=== PATIENT | female | born 1965 | race Caucasian/White ===

== ENCOUNTER 2017-10-06 08:28 | Emergency (ER) | payer OTHER, MEDICAID ==
[2017-10-06 09:11] LABS: ADD MAN DIFF? NO
[2017-10-06 09:14] LABS: BASOPHILS % 0.4 % (0.0-2.0); EOSINOPHILS # 0.1 10^3/ul (0.0-0.5); EOSINOPHILS % 1.8 % (0.0-7.0); HEMATOCRIT 39.5 % (37.0-47.0); HEMOGLOBIN 13.2 g/dl (12.0-16.0); LYMPHOCYTES # 1.3 10^3/ul (0.8-2.9); LYMPHOCYTES % 26.9 % (15.0-51.0); MEAN CORPUSCULAR HEMOGLOBIN 31.7 pg (29.0-33.0); MEAN CORPUSCULAR HGB CONC 33.4 g/dl (32.0-37.0); MEAN PLATELET VOLUME 10.8 fl (7.4-10.4); MONOCYTE # 0.5 10^3/ul (0.3-0.9); MONOCYTES % 9.6 % (0.0-11.0); NEUTROPHILS % 61.1 % (39.0-77.0); PLATELET COUNT 207 10^3/UL (140-415); RED BLOOD COUNT 4.16 10^6/ul (4.20-5.40); RED CELL DISTRIBUTION WIDTH 11.9 % (11.5-14.5)
[2017-10-06 09:33] LABS: ALANINE AMINOTRANSFERASE 757 IU/L (13-69); ALBUMIN 4.3 g/dl (3.3-4.9); ALBUMIN/GLOBULIN RATIO 1.38; ALKALINE PHOSPHATASE 126 IU/L (42-121); ANION GAP 14 (8-16); BILIRUBIN,INDIRECT 0.5 mg/dl (0-1.1); BILIRUBIN,TOTAL 0.5 mg/dl (0.2-1.3); BLOOD UREA NITROGEN 17 mg/dl (7-20); CALCIUM 9.1 mg/dl (8.4-10.2); CARBON DIOXIDE 28 mmol/L (21-31); CHLORIDE 106 mmol/L (97-110); CREATININE 0.62 mg/dl (0.44-1.00); GLUCOSE 109 mg/dl (70-220); LIPASE 444 U/L (23-300); POTASSIUM 3.5 mmol/L (3.5-5.1); SODIUM 144 mmol/L (135-144); TOTAL PROTEIN 7.4 g/dl (6.1-8.1)
[2017-10-06 09:45] LABS: ASPARTATE AMINO TRANSFERASE 1427 IU/L (15-46)
[2017-10-06] MEDS: ONDANSETRON 4 MG INJ IV (10:18)
[2017-10-06] MEDS: morphine 4 MG/ML VIAL IV (10:19)
[2017-10-06 10:28] LABS: TROPONIN-I < 0.012 ng/ml (0.00-0.12)
[2017-10-06 10:55] LABS: ADD UMIC YES; UR ASCORBIC ACID 20 mg/dL (NEGATIVE); UR BACTERIA FEW /HPF (NONE SEEN); UR BILIRUBIN (Dip) 1+ mg/dL (NEGATIVE); UR BLOOD (Dip) 2+ mg/dL (NEGATIVE); UR CALCIUM OXALATE CRYSTAL FEW /HPF (NONE SEEN); UR CLARITY CLEAR (CLEAR); UR COLOR AMBER (YELLOW); UR GLUCOSE (Dip) NEGATIVE (NEGATIVE); UR KETONES (Dip) NEGATIVE (NEGATIVE); UR LEUKOCYTE ESTERASE (Dip) NEGATIVE Leu/ul (NEGATIVE); UR MUCUS FEW /HPF (NONE SEEN); UR NITRITE (Dip) NEGATIVE (NEGATIVE); UR RBC 16 /HPF (0-5); UR SPECIFIC GRAVITY (Dip) 1.024 (1.003-1.030); UR TOTAL PROTEIN (Dip) 1+ mg/dl (NEGATIVE); UR UROBILINOGEN (Dip) 2+ mg/dL (NEGATIVE); UR WBC 10 /HPF (0-5)
[2017-10-06 12:17] LABS: HAAIG REFLEX REFLEX FILED
[2017-10-06 13:09] LABS: HEPATITIS B SURFACE ANTIGEN NEGATIVE (NEGATIVE)
[2017-10-06 13:27] LABS: HEPATITIS B CORE ANTIBODY NEGATIVE (NEGATIVE); HEPATITIS C VIRAL ANTIBODY NEGATIVE (NEGATIVE)
== END 2017-10-06 12:55 | disposition home or self-care (01) ==
LOC: E/R 08:28
DX: N30.90 Cystitis, unspecified without hematuria (principal); R74.8 Abnormal levels of other serum enzymes; I10 Essential (primary) hypertension; Z79.82 Long term (current) use of aspirin
CPT/HCPCS: 36415; 74176; 76705; 80053; 81001; 83690; 84484; 85025; 86704; 86709; 86803; 87340; 93005; 96374; 96375; 99285-25

== ENCOUNTER 2019-01-07 13:34 | Observation (INO) | payer OTHER ==
[2019-01-07] MEDS ORDERED: NITROGLYCERIN (SL) 0.4 MG TAB SL (14:30)
[2019-01-07] MEDS: NITROGLYCERIN 2% 1 GM OINT PKT TD (14:31)
[2019-01-07] MEDS: ASPIRIN 81 MG TAB PO (14:31)
[2019-01-07] MEDS: NICARDipine HCL 30 MG CAPSULE PO (14:31)
[2019-01-07 14:39] LABS: ADD MAN DIFF? NO
[2019-01-07 14:40] LABS: BASOPHIL # 0.1 10^3/ul (0.0-0.1); BASOPHILS % 0.5 % (0.0-2.0); EOSINOPHILS # 0.4 10^3/ul (0.0-0.5); EOSINOPHILS % 4.1 % (0.0-7.0); HEMATOCRIT 41.7 % (37.0-47.0); HEMOGLOBIN 14.1 g/dl (12.0-16.0); LYMPHOCYTES # 1.5 10^3/ul (0.8-2.9); LYMPHOCYTES % 14.4 % (15.0-51.0); MEAN CORPUSCULAR HEMOGLOBIN 31.6 pg (29.0-33.0); MEAN CORPUSCULAR HGB CONC 33.8 g/dl (32.0-37.0); MEAN CORPUSCULAR VOLUME 93.5 fl (82.0-101.0); MEAN PLATELET VOLUME 10.9 fl (7.4-10.4); MONOCYTE # 0.7 10^3/ul (0.3-0.9); MONOCYTES % 6.4 % (0.0-11.0); NEUTROPHIL # 7.6 10^3/ul (1.6-7.5); NEUTROPHILS % 74.3 % (39.0-77.0); PLATELET COUNT 212 10^3/UL (140-415); RED BLOOD COUNT 4.46 10^6/ul (4.20-5.40); RED CELL DISTRIBUTION WIDTH 11.8 % (11.5-14.5)
[2019-01-07 14:40] LABS: WHITE BLOOD COUNT 10.2 10^3/ul (4.8-10.8)
[2019-01-07 15:00] LABS: ANION GAP 11 (5-13); BLOOD UREA NITROGEN 13 mg/dl (7-20); CARBON DIOXIDE 29 mmol/L (21-31); CHLORIDE 105 mmol/L (97-110); Estimated GFR > 60 mL/min (>60); GLUCOSE 93 mg/dl (70-220); POTASSIUM 3.9 mmol/L (3.5-5.1); SODIUM 145 mmol/L (135-144)
[2019-01-07 15:11] LABS: TROPONIN-I < 0.012 ng/ml (0.000-0.120)
[2019-01-07] MEDS ORDERED: ACETAMINOPHEN 325 MG TAB PO (16:30)
[2019-01-07] MEDS ORDERED: ONDANSETRON 4 MG INJ IV (16:30)
[2019-01-07] MEDS ORDERED: ZOLPIDEM 5 MG TAB PO (18:30)
[2019-01-07] MEDS: ACETAMINOPHEN 325 MG TAB PO (19:46)
[2019-01-07] MEDS: BENAZEPRIL 20 MG TAB PO (19:46)
[2019-01-07 21:44] LABS: CREATINE KINASE 42 IU/L (23-200)
[2019-01-07 21:58] LABS: CK INDEX 0.7; TROPONIN-I < 0.012 ng/ml (0.000-0.120)
[2019-01-08] MEDS: ACETAMINOPHEN 325 MG TAB PO ×2 (03:00→09:41)
[2019-01-08 04:48] LABS: TROPONIN-I < 0.012 ng/ml (0.000-0.120)
[2019-01-08] MEDS ORDERED: HYDROCODONE/APAP (5/325) TAB PO (07:00)
[2019-01-08] MEDS: BENAZEPRIL 20 MG TAB PO (09:30)
== END 2019-01-08 14:58 | disposition home or self-care (01) ==
LOC: E/R 13:34 → TEL 16:08
DX: R07.89 Other chest pain (principal); J06.9 Acute upper respiratory infection, unspecified; I10 Essential (primary) hypertension; K21.9 Gastro-esophageal reflux disease without esophagitis
CPT/HCPCS: 36415; 71045; 80048; 82550; 82553; 84484; 85025; 87400; 93005; 93306; 93350; 99285-25; G0378